=== PATIENT | female | born 1980 ===

== ENCOUNTER 2018-02-15 12:27 | Emergency (ER) | payer OTHER ==
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
[2018-02-15 12:52] VITALS: BP 104/61
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
== END 2018-02-15 12:55 | disposition left against medical advice (07) ==
DX: S40.212A Abrasion of left shoulder, initial encounter (principal); S90.412A Abrasion, left great toe, initial encounter; V03.10XA Pedestrian on foot injured in collision with car, pick-up truck or van in traffic accident, initial encounter; Y92.410 Unspecified street and highway as the place of occurrence of the external cause; Y99.8 Other external cause status; Y93.89 Activity, other specified